=== PATIENT | female | born 1970 | race African-American/Black ===

== ENCOUNTER 2016-06-21 04:05 | Emergency (ER) | payer BC, OTHER ==
[2016-06-21] MEDS ORDERED: KETOROLAC 30 MG/ML VIAL ONE (06:02)
[2016-06-21] MEDS ORDERED: ONDANSETRON 4 MG VIAL ONE (06:02)
[2016-06-21] MEDS ORDERED: DIPHENHYDRAMINE 50 MG/ML VIAL ONE (06:02)
[2016-06-21] MEDS ORDERED: SODIUM CHLORIDE 0.9% 1,000 ML ONE (06:02)
[2016-06-21] MEDS ORDERED: METOCLOPRAMIDE 10 MG/2 ML VIAL ONE (06:03)
== END 2016-06-21 07:11 | disposition home or self-care (01) ==
LOC: ER 04:05
DX: G43.001 Migraine without aura, not intractable, with status migrainosus (principal)
CPT/HCPCS: 96361; 96374; 96375